=== PATIENT | female | born 1955 | race Two or more races ===

== ENCOUNTER 2021-06-16 18:27 | Emergency (ER) | payer OTHER ==
[~2021-06-16] VITALS: Ht 165.1 cm; Wt 67.1 kg
== END 2021-06-16 21:26 | disposition home or self-care (01) ==
LOC: ER 18:27
DX: S00.83XA Contusion of other part of head, initial encounter (principal); X58.XXXA Exposure to other specified factors, initial encounter; Y92.838 Other recreation area as the place of occurrence of the external cause; Y93.89 Activity, other specified